=== PATIENT | female | born 2000 | race Two or more races ===

== ENCOUNTER 2023-04-18 19:36 | Emergency (ER) | payer OTHER ==
[~2023-04-18] VITALS: Ht 160 cm; Wt 77.0 kg
[~2023-04-18 19:36] MED LIST: INSLAN SQ; INSNOV SQ
[2023-04-18 19:55] VITALS: TEMP 98.3
[2023-04-18 21:10] LABS: APPEARANCE,URINE HAZY (CLEAR); COLOR,URINE YELLOW (YELLOW); GLUCOSE, URINE (UA) >=1000 mg/dL (NEGATIVE); KETONES,URINE =>150 mg/dL (NEGATIVE); LEUKOCYTE ESTERASE ,URINE LARGE (NEGATIVE); NITRATE,URINE NEGATIVE (NEGATIVE); OCCULT BLOOD,URINE TRACE (NEGATIVE); PROTEIN,URINE 30-70 mg/dL (NEGATIVE); SPECIFIC GRAVITIY, URINE 1.023 (1.003-1.030)
[2023-04-18 21:12] LABS: BILIRUBIN,URINE SMALL (NEGATIVE)
[2023-04-18 21:22] LABS: SQUAMOUS EPITHELIAL CELL,UR Few /LPF (None Seen)
[2023-04-18 21:23] LABS: BACTERIA,URINE Few /HPF (None Seen); RBC,URINE 0-2 /HPF (0-2); WBC,URINE 26-50 /HPF (0-5); YEAST,URINE Many /HPF (None Seen)
[2023-04-18] MEDS ORDERED: VALA500T PO (23:58)
[2023-04-19] MEDS ORDERED: CefTRIAXone SODIUM 1 GM/VIAL IM ONE
[2023-04-19] MEDS ORDERED: LIDOCAINE/PF 1% 2 ML VIAL IM ONE
[2023-04-19] MEDS ORDERED: AZITHROMYCIN 500 MG TABLET PO ONE
[2023-04-19 00:11] VITALS: BP 105/77; PULSE 98; RESP 18
== END 2023-04-19 00:27 | disposition home or self-care (01) ==
LOC: EMS 19:37
DX: B00.9 Herpesviral infection, unspecified (principal); A64 Unspecified sexually transmitted disease; E11.9 Type 2 diabetes mellitus without complications; Z88.6 Allergy status to analgesic agent
CPT/HCPCS: 99283; 86592; 81001; 84703; 36415; 87086; 87186; 87491; 87591; 96372; J0696; J3490; Q9967

== ENCOUNTER 2024-08-18 14:24 | Emergency (ER) | payer OTHER ==
[~2024-08-18] VITALS: Ht 162.6 cm; Wt 75.0 kg
[~2024-08-18 14:24] MED LIST changes: +VALA500T PO
[2024-08-18 14:31] VITALS: TEMP 98
[2024-08-18] MEDS ORDERED: INSU100I24 SQ (14:34)
[2024-08-18] MEDS ORDERED: INSU100I3 SQ (14:34)
[2024-08-18] MEDS ORDERED: DULO-113 PO (14:34)
[2024-08-18] MEDS ORDERED: PROP20TA96 PO (14:34)
[2024-08-18] MEDS: ACETAMINOPHEN 325 MG TABLET PO ONE (16:37)
[2024-08-18] MEDS: IBUPROFEN 400 MG TABLET PO ONE (16:37)
[2024-08-18 17:00] VITALS: BP 126/78; PULSE 71; RESP 15; O2SAT 100
== END 2024-08-18 17:11 | disposition home or self-care (01) ==
LOC: EMS 15:39
DX: S82.832A Other fracture of upper and lower end of left fibula, initial encounter for closed fracture (principal); E11.9 Type 2 diabetes mellitus without complications; Z88.5 Allergy status to narcotic agent; Z79.899 Other long term (current) drug therapy; X50.1XXA Overexertion from prolonged static or awkward postures, initial encounter; Y93.89 Activity, other specified; Y92.89 Other specified places as the place of occurrence of the external cause; Y99.8 Other external cause status
CPT/HCPCS: 99283

== ENCOUNTER 2024-08-23 15:40 | Emergency (ER) | payer OTHER ==
[~2024-08-23] VITALS: Ht 162.6 cm; Wt 72.7 kg
[~2024-08-23 15:40] MED LIST changes: +DULO-113 PO; -INSLAN SQ; -INSNOV SQ; +INSU100I24 SQ; +INSU100I3 SQ; +PROP20TA96 PO; -VALA500T PO
[2024-08-23 15:42] VITALS: BP 114/70; PULSE 107; RESP 18; TEMP 99; O2SAT 100
[2024-08-23] MEDS ORDERED: POLYOS OU (15:55)
[2024-08-23] MEDS: ACETAMINOPHEN 500 MG TABLET PO ONE (16:19)
[2024-08-23] MEDS: POLYMYXIN B/TRIMETHOPRIM 10 ML OPHTHALMIC SOLUTION OU ONE (16:19)
== END 2024-08-23 16:23 | disposition home or self-care (01) ==
LOC: EMS 15:40
DX: H10.9 Unspecified conjunctivitis (principal); E11.9 Type 2 diabetes mellitus without complications; Z88.5 Allergy status to narcotic agent; Z79.4 Long term (current) use of insulin
CPT/HCPCS: 82962; 99283

== ENCOUNTER 2024-11-01 15:23 | Emergency (ER) | payer OTHER ==
[~2024-11-01] VITALS: Ht 162.6 cm; Wt 160.0 kg
[~2024-11-01 15:23] MED LIST changes: -DULO-113 PO; +POLYOS OU; -PROP20TA96 PO
[2024-11-01 15:24] VITALS: TEMP 98.8
[2024-11-01 15:30] VITALS: BP 135/82; PULSE 95; RESP 18; O2SAT 99
[2024-11-01 15:39] LABS: APPEARANCE,URINE CLEAR (CLEAR); BILIRUBIN,URINE NEGATIVE (NEGATIVE); COLOR,URINE LIGHT YELLOW (YELLOW); GLUCOSE, URINE (UA) >=1000 mg/dL (NEGATIVE); KETONES,URINE 40-60 mg/dL (NEGATIVE); LEUKOCYTE ESTERASE ,URINE NEGATIVE (NEGATIVE); NITRATE,URINE POSITIVE (NEGATIVE); OCCULT BLOOD,URINE NEGATIVE (NEGATIVE); PH,URINE 5.5 (5.0-8.0); PROTEIN,URINE NEGATIVE (NEGATIVE); SPECIFIC GRAVITIY, URINE 1.029 (1.003-1.030); UROBILINOGEN,URINE <=1.0 mg/dL (<=1.0)
[2024-11-01 16:11] LABS: RBC,URINE 0-2 /HPF (0-2)
[2024-11-01 16:12] LABS: BACTERIA,URINE Few /HPF (None Seen); SQUAMOUS EPITHELIAL CELL,UR Few /LPF (None Seen); YEAST,URINE None Seen /HPF (None Seen)
[2024-11-01] MEDS: CEPHALEXIN MONOHYDRATE 500 MG CAPSULE PO ONE (17:16)
[2024-11-01] MEDS ORDERED: CEPH-558 PO (17:25)
[2024-11-01] MEDS ORDERED: ACYC-138 PO (17:27)
== END 2024-11-01 18:04 | disposition home or self-care (01) ==
LOC: EMS 15:23
DX: B00.9 Herpesviral infection, unspecified (principal); N39.0 Urinary tract infection, site not specified; E11.9 Type 2 diabetes mellitus without complications; Z88.5 Allergy status to narcotic agent
CPT/HCPCS: 81001; 87491; 87591; 99283

== ENCOUNTER 2025-01-14 06:17 | Emergency (ER) | payer OTHER ==
[~2025-01-14] VITALS: Ht 162.6 cm; Wt 72.7 kg
[~2025-01-14 06:17] MED LIST changes: +ACYC-138 PO; +CEPH-558 PO
[2025-01-14 06:37] VITALS: TEMP 97.7
[2025-01-14] MEDS: IBUPROFEN 600 MG TABLET PO ONE (06:49)
[2025-01-14 10:17] VITALS: BP 105/67; PULSE 87; RESP 18; O2SAT 96
== END 2025-01-14 10:17 | disposition home or self-care (01) ==
LOC: EMS 06:18
DX: S83.92XA Sprain of unspecified site of left knee, initial encounter (principal); E11.9 Type 2 diabetes mellitus without complications; Z88.5 Allergy status to narcotic agent; Z79.624 Long term (current) use of inhibitors of nucleotide synthesis; X58.XXXA Exposure to other specified factors, initial encounter; Y93.89 Activity, other specified; Y92.89 Other specified places as the place of occurrence of the external cause; Y99.8 Other external cause status
CPT/HCPCS: 99283